=== PATIENT | female | born 1985 | race African-American/Black ===

== ENCOUNTER 2021-08-20 11:28 | Emergency (ER) | payer OTHER ==
[~2021-08-20] VITALS: Ht 170.2 cm; Wt 77.0 kg
[2021-08-20 11:35] VITALS: BP 155/90
[2021-08-20] MEDS ORDERED: KETOROLAC 15MG/ML VIAL IM ONE (12:30)
== END 2021-08-20 15:09 | disposition home or self-care (01) ==
LOC: ER 11:42
DX: S30.1XXA Contusion of abdominal wall, initial encounter (principal); V49.9XXA Car occupant (driver) (passenger) injured in unspecified traffic accident, initial encounter; Y93.89 Activity, other specified; Y92.89 Other specified places as the place of occurrence of the external cause; Y99.8 Other external cause status
CPT/HCPCS: 71045; 73030; 73110; 73590; 74176; 99284